=== PATIENT | female | born 1995 | race Two or more races ===

== ENCOUNTER 2019-07-05 19:34 | Emergency (ER) | payer BC, MEDICAID ==
[~2019-07-05] VITALS: Ht 154.9 cm; Wt 52.2 kg
[~2019-07-05 19:34] MED LIST: ATARAX25 MG ORAL; HYDROCORTISONE28 G5 TP; KENALOG IN ORABA1 EA APPLIC
[2019-07-05 19:55] VITALS: BP 129/67
--- NOTE | 2019-07-05 20:14 | Emergency Room Report ---
History of Present Illness General Chief Complaint: Behavioral Complaint Source: Patient Present Illness HPI 23-year-old female with no symptom past medical history here complaining of 3 weeks of intermittent anxiety and palpitation. Reports that she often feels anxious a lot of burping and acid reflux at night when laying down. Reports that she eats a lot of spicy acidic food. Also in the past several days has not had any appetite as she feels nauseated. Reports that she was late on her period however her period started. Patient took a test at home few days ago and it was negative. Denies any diffuse abdominal pain, diarrhea, cough or congestion, shortness of breath. Reports that she has been staying at home for the past several weeks. Endorses a lot of anxiety for the recent COVID -19 situation. Denies any SI and HI at this time. Allergies: Coded Allergies: No Known Allergies (Unverified , 11/06/13) COVID-19 Screening Contact w/high risk pt: No Recent Travel to affected area: No Experienced COVID-19 symptoms?: No COVID-19 Testing performed DATA REDUCTION TECHNICIAN: No Patient History Past Medical History: see triage record Past Surgical History: none Pertinent Family History: none Social History: Reports: drug use - marijuana Last Menstrual Period: 05/22/19 Now: No Immunizations: UTD Reviewed Nursing Documentation: PMH: Agreed; PSxH: Agreed Nursing Documentation-PMH Past Medical History: No Stated History Review of Systems All Other Systems: negative except mentioned in HPI Physical Exam Vital Signs Date Time Temp Pulse Resp B/P (MAP) Pulse Ox O2 Delivery O2 Flow Rate FiO2 07/05/19 19:46 98.4 96 16 129/67 (87) 96 Room Air Sp02 EP Interpretation: reviewed, normal General Appearance: no apparent distress, alert, GCS 15, non-toxic Head: normocephalic, atraumatic Eyes: bilateral eye normal inspection, bilateral eye PERRL ENT: hearing grossly normal, normal pharynx, no angioedema, normal voice Neck: full range of motion, supple/symm/no masses Respiratory: chest non-tender, lungs clear, normal breath sounds, no rhonchi, no retraction, speaking full sentences Cardiovascular #1: regular rate, rhythm, no edema, no murmur Gastrointestinal: normal bowel sounds, non tender, soft, non-distended, no guarding, no rebound Rectal: deferred Genitourinary: no CVA tenderness Musculoskeletal: back normal Neurologic: alert, motor strength/tone normal, oriented x3, sensory intact, responsive, speech normal Psychiatric: no suicidal/homicidal ideation, anxious Skin: no rash Lymphatic: no adenopathy Medical Decision Making PA Attestation All diagnoses and treatment plans were reviewed and discussed with my supervising physician Dr. Summers Diagnostic Impression: Primary Impression: Anxiety Additional Impression: GERD (gastroesophageal reflux disease) ER Course 23-year-old female with no symptom past medical history here complaining of 3 weeks of intermittent anxiety and palpitation. Reports that she often feels anxious a lot of burping and acid reflux at night when laying down. Reports that she eats a lot of spicy acidic food. Also in the past several days has not had any appetite as she feels nauseated. Reports that she was late on her period however her period started. Patient took a test at home few days ago and it was negative. Denies any diffuse abdominal pain, diarrhea, cough or congestion, shortness of breath. Reports that she has been staying at home for the past several weeks. Endorses a lot of anxiety for the recent COVID -19 situation. Denies any SI and HI at this time. Ddx considered but are not limited to: generalized anxiety disorder, panic attack, depression with psychotic feature, bipolar disorder, drug overdose Vital signs: are WNL, pt. is afebrile H&PE are most consistent with: Anxiety ORDERS: EKG, CXR, tox screen, UA, urine , omeprazole, zofran ED INTERVENTIONS: zofran, pepcid I signed out the patient to Dr. Summers at 8:30 PM pending UA, tox screen, urine preg results DISCHARGE: At this time pt. is stable for d/c to home. Will provide printed patient care instructions, and any necessary prescriptions. Care plan and follow up instructions have been discussed with the patient prior to discharge. Take medication as directed, follow-up primary doctor, if worse emergency room , avoid marijuana use EKG Diagnostic Results Rate: normal Rhythm: NSR ST Segments: no acute changes Other Impression No acute ST changes Chest X-Ray Diagnostic Results Chest X-Ray Diagnostic Results : Chest X-Ray Ordered: Yes # of Views/Limited/Complete: 1 View Indication: Other EP Interpretation: Yes PA Xray: Interpretation reviewed, by supervising , and agrees with findings. Interpretation: no consolidation, no effusion, no pneumothorax Impression: No acute disease Electronically Signed by: Lenard Gutierrez PA-C Last Vital Signs Date Time Temp Pulse Resp B/P (MAP) Pulse Ox O2 Delivery O2 Flow Rate FiO2 07/05/19 19:55 96 16 Room Air 07/05/19 19:55 98.4 129/67 96 Disposition: HOME, SELF-CARE Condition: Stable Scripts Ondansetron (Zofran) 4 Mg Tablet 4 MG ORAL Q6H PRN for Nausea & Vomiting, #14 TAB Prov: Lenard Nur 07/05/19 Omeprazole (OMEPRAZOLE) 20 Mg Tablet. 20 MG ORAL DAILY, #30 TAB Prov: Lenard Nur 07/05/19 Referrals: NOT CHOSEN IPA/,REFERRING (PCP) Patient Instructions: Food Choices for Gastroesophageal Reflux Disease, Adult, Generalized Anxiety Disorder Additional Instructions: Avoid eating spicy acidic food, take medication as directed, increase oral hydration, worsening symptoms return to emergency room, avoid marijuana use Lenard Nur July 05, 2019 20:14
[2019-07-05] MEDS ORDERED: ZOFRAN4 M1 ORAL (20:16)
[2019-07-05] MEDS ORDERED: OMEPRAZOLE20 M3 ORAL (20:16)
[2019-07-05 21:04] LABS: APPEARANCE,URINE TURBID; BILIRUBIN, URINE NEGATIVE (NEGATIVE); COLOR,URINE RED; GLUCOSE, URINE (UA) NEGATIVE (NEGATIVE); KETONES,URINE 3+ (NEGATIVE); LEUKOCYTE ESTERASE ,URINE 2+ (NEGATIVE); NITRITE,URINE NEGATIVE (NEGATIVE); PH,URINE 5 (4.5-8.0); PROTEIN,URINE 4+ (NEGATIVE); UROBILINOGEN,URINE NORMAL MG/DL (0.0-1.0)
[2019-07-05] MEDS ORDERED: NITROFURANTOIN100 M2 ORAL (21:26)
[2019-07-05 21:45] VITALS: BP 126/78
--- NOTE | 2019-07-07 16:30 | Diagnostic Imaging Report ---
Procedure: XRAY Chest 1v Reason for study: Chest pain Comparison films: None. FINDINGS: A single one view chest is obtained. Vascularity is normal. The lung thomas are clear bilaterally. Cardiac and mediastinal silhouette are within normal limits. CP angles are sharp. The bony thorax appear unremarkable. IMPRESSION: NO ACUTE CARDIOPULMONARY DISEASE.
== END 2019-07-05 21:45 | disposition home or self-care (01) ==
LOC: EMR 19:53
DX: F41.9 Anxiety disorder, unspecified (principal); K21.9 Gastro-esophageal reflux disease without esophagitis; F12.90 Cannabis use, unspecified, uncomplicated
CPT/HCPCS: 71045; 80307; 81003; 81025; 87086; 93005; 96372; 99283; J2405